=== PATIENT | female | born 1940 | race Caucasian/White ===

== ENCOUNTER 2020-03-07 07:49 | Day surgery (SDC) | payer OTHER ==
[2020-03-04 12:43] VITALS: BMI 25.9
[2020-03-07] MEDS ORDERED: TROPICAMIDE 1% OPHTH SOLN 15 ML BOTTLE ONE (08:10)
[2020-03-07] MEDS ORDERED: PHENYLEPHRINE 2.5% OPHTH SOLN 15 ML BOTTLE ONE (08:10)
[2020-03-07] MEDS ORDERED: CYCLOPENTOLATE 2% OPHTH SOLN 2 ML BOTTLE ONE (08:10)
[2020-03-07] MEDS ORDERED: CIPROFLOXACIN 0.3% EYE DROPS 5 ML BOTTLE ONE (08:10)
[2020-03-07] MEDS: TROPICAMIDE 1% OPHTH SOLN 15 ML BOTTLE OP SCH ×3 (08:25→08:35)
[2020-03-07] MEDS: CIPROFLOXACIN HCL 0.3% OPHTH 2.5ML BOTTLE OP SCH ×3 (08:25→08:35)
[2020-03-07] MEDS: CYCLOPENTOLATE 2% OPHTH SOLN 2 ML BOTTLE OP SCH ×3 (08:25→08:35)
[2020-03-07] MEDS: PHENYLEPHRINE 2.5% OPHTH SOLN 15 ML BOTTLE OP SCH ×3 (08:25→08:35)
[2020-03-07 08:33] VITALS: TEMP 97.9
[2020-03-07] MEDS ORDERED: MIDAZOLAM HCL 2 MG/2 ML SINGLE DOSE VIAL ONE (08:55)
[2020-03-07] MEDS ORDERED: EPI-SHUGARCAINE (EPINEPHRINE 0.025% & LIDOCAINE-PF 0.75%) 4ML ONE (09:01)
[2020-03-07] MEDS ORDERED: POVIDONE-IODINE 5% OPHTHALMIC PREP 30 ML SOLUTION ONE (09:02)
[2020-03-07] MEDS ORDERED: NEO/POLYMYX B SULF/DEXAMETH OPHTHALMIC 5ML BOTTLE ONE (09:02)
[2020-03-07] MEDS ORDERED: BSS (NA/CA/MG/K) BALANCED SALT SOLUTION OPHTH SOLN 15 ML BOTTLE ONE (09:02)
[2020-03-07] MEDS ORDERED: CARBACHOL 0.01% INTRA-OCULAR 1.5 ML VIAL ONE (09:02)
[2020-03-07] MEDS ORDERED: TETRACAINE 0.5% OPHTH SOLN 2 ML BOTTLE ONE (09:02)
[2020-03-07] MEDS ORDERED: KETAMINE HCL 500 MG/10 ML VIAL ONE (09:11)
[2020-03-07 11:43] VITALS: BP 132/76; PULSE 69
== END 2020-03-07 11:15 | disposition home or self-care (01) ==
LOC: FASU 07:49
PROVIDERS: ATTEND Ophthalmology
PROC: 08RJ3JZ Replacement of Right Lens with Synthetic Substitute, Percutaneous Approach (ICD-10-PCS; principal; 2020-03-07 10:23)
DX: H25.11 Age-related nuclear cataract, right eye (principal)